=== PATIENT | female | born 1940 | race Caucasian/White ===

== ENCOUNTER 2018-06-10 07:55 | Day surgery (SDC) | payer MEDICARE, OTHER ==
[2018-06-09 11:05] VITALS: BMI 34.9
[~2018-06-10 07:55] MED LIST: LACTATED RINGERS 1,000 ML IV SCH
[2018-06-10 08:29] VITALS: TEMP 99
[2018-06-10] MEDS ORDERED: LIDOCAINE 1% 20 ML VIAL (10MG/ML) FOR IV START INTRADERMA ONE (08:36)
[2018-06-10 08:42] LABS: Glucose,Whole Blood 116 mg/dL (75-99)
[2018-06-10] MEDS ORDERED: LIDOCAINE 1% INJ 10MG/ML (20 ML MDV) ONE (08:53)
[2018-06-10] MEDS ORDERED: PROPOFOL 10 MG/ML 20 ML VIAL IV ONE (08:53)
--- NOTE | 2018-06-10 09:48 | P.PCN ---
Date of Procedure: 06/10/18 Procedure(s) Performed: Brief history: Patient is a pleasant 77-year-old white female, scheduled for an elective upper endoscopy as well as colonoscopy as a part of evaluation of GERD/Harris's esophagus and prior history of colon polyps Procedure performed: Esophagogastroduodenoscopy with biopsy Colonoscopy with snare polypectomy Preoperative diagnosis: GERD/Harris's esophagus History of colon polyps Anesthesia: MAC Procedure: After informed consent was obtained from the patient was brought into the endoscopy unit and IV sedation was administered by anesthesia under continuous monitoring. Initially upper endoscopy was done. The Olympus GF 160 video endoscope was inserted inserted into the mouth and esophagus intubated without any difficulty and was gradually advanced into the stomach and duodenum and carefully examined. The bulb and second part of the duodenum appeared normal. The scope was then withdrawn into the stomach adequately insufflated with air and upon careful examination the antrum and body, appeared normal. There was a moderate large size hiatal hernia noted with diaphragmatic impression at 45 cm from the incisors. GE junction at 38 cm from the incisors. In the hiatal hernia sac there was solid the largest measuring 1 cm in size and multiple biopsies were done from this area. The scope was then withdrawn into the esophagus. The GE junction was located at 38 cm to the incisors. There was long segment of Harris's esophagus extending from 30-38 cm from the incisors and the mucosa appeared smooth with no nodularity. Multiple biopsies were done at every 2 cm into well. Rest of the esophagus appeared normal. Patient tolerated the procedure well. At this time the patient continued to remain sedation. Initial digital rectal examination was normal. Olympus CF 160 video colonoscope was then inserted into the rectum and gradually advanced to the cecum without any difficulty. Careful examination was performed as the scope was gradually being withdrawn. The prep was excellent. The cecum appeared normal. In the ascending colon there was a 2 cm broad-based polyp removed by snare polypectomy. In the hepatic flexure there was a 3-4 cm broad-based polyp that was removed by piecemeal snare polypectomy and complete polypectomy accomplished. In the transverse colon there was a recurrent polyp at the site was dressed polypectomy with tattooing was performed. This polyp measured about 3 cm was broad-based and linear and this was also removed in a piecemeal fashion. The rest of the, ascending colon, transverse colon, descending colon, sigmoid colon and rectum appeared normal. Moderate similar diverticulosis seen. Retroflexion was performed in the rectum and no lesions were noted. Patient tolerated the procedure well. Impression: 1. Upper endoscopy revealed long segment Harris's esophagus, moderate to large size hiatal hernia and gastric polyps 2. Colonoscopy revealed: a) 2 cm broad-based ascending colon polyp status post polypectomy b) 3-4 cm broad-based hepatic flexure polyp status post piecemeal snare polypectomy and complete polypectomy accomplished c) 3 cm linear broad-based polyp in the transverse colon at the site of previous polypectomy status post piecemeal snare polypectomy d) moderate sigmoid diverticular Recommendations: Findings of this examination were discussed with the patient as well as her family. She was advised to follow with the biopsy results. She will be seen in office in a week. Based the biopsy results will plan a repeat colonoscopy in 6 months.
[2018-06-10 10:09] VITALS: BP 124/80; PULSE 76; RESP 20
== END 2018-06-10 10:41 | disposition home or self-care (01) ==
LOC: ORWHC2ENDO 07:55 → EEVIPCON 08:50 → ORWHC2ENDO 10:41
PROVIDERS: ATTEND Internal Medicine Gastroenterology
DX: Z12.11 Encounter for screening for malignant neoplasm of colon (principal); D12.2 Benign neoplasm of ascending colon; D12.3 Benign neoplasm of transverse colon; K22.70 Barrett's esophagus without dysplasia; K44.9 Diaphragmatic hernia without obstruction or gangrene; K57.30 Diverticulosis of large intestine without perforation or abscess without bleeding; Z86.010 Personal history of colon polyps; K31.7 Polyp of stomach and duodenum; Z79.890 Hormone replacement therapy; Z79.899 Other long term (current) drug therapy; G47.33 Obstructive sleep apnea (adult) (pediatric); J44.9 Chronic obstructive pulmonary disease, unspecified; E11.9 Type 2 diabetes mellitus without complications; E66.01 Morbid (severe) obesity due to excess calories; Z68.35 Body mass index [BMI] 35.0-35.9, adult
CPT/HCPCS: 88305; 45385; 43239; 45381; J2001; J2704

== ENCOUNTER → 2018-10-22 | Outpatient (CLI) | payer MEDICARE, OTHER ==
[2018-10-22 20:16] LABS: Anisocytosis Slight; Basophils # (A) 0.1 k/uL (0-0.2); Basophils % (A) 1 %; Eosinophils # (A) 0.1 k/uL (0-0.7); Eosinophils % (A) 2 %; HGB 8.5 gm/dL (11.4-16.0); Hypochromasia Marked; Lymphocytes # (A) 2.2 k/uL (1.0-4.8); Lymphocytes % (A) 32 %; MCH 22.2 pg (25.0-35.0); MCHC 30.2 g/dL (31.0-37.0); MCV 73.6 fL (80.0-100.0); Microcytosis Moderate; Monocytes # (A) 0.5 k/uL (0-1.0); Monocytes % (A) 7 %; Neutrophils # (A) 3.9 k/uL (1.3-7.7); Neutrophils % (A) 55 %; Platelet Count 324 k/uL (150-450); Poikilocytosis Slight; RBC 3.81 m/uL (3.80-5.40); RDW 17.6 % (11.5-15.5); WBC 7.1 k/uL (3.8-10.6)
[2018-10-23 01:57] LABS: Iron Saturation 3.5 (12.00-45.00)
== END | disposition home or self-care (01) ==
LOC: LABWHC1 15:52
PROVIDERS: ATTEND Nurse Practitioner
DX: D50.9 Iron deficiency anemia, unspecified (principal)
CPT/HCPCS: 36415; 82728; 83540; 83550; 85025; 85045

== ENCOUNTER 2018-11-03 14:16 | Inpatient (IN) | payer MEDICARE, OTHER ==
[2018-11-03] MEDS ORDERED: PANTOPRAZOLE 40 MG/10 ML VIAL IVP STA (15:52)
[2018-11-03 16:44] LABS: Albumin 4.7 g/dL (3.5-5.0); Calcium 9.6 mg/dL (8.4-10.2); Potassium 5.3 mmol/L (3.5-5.1); Total Bilirubin 0.3 mg/dL (0.2-1.3); Total Protein 8.6 g/dL (6.3-8.2)
[2018-11-03 16:48] LABS: Anisocytosis Moderate; Basophils % (A) 1 %; Eosinophils # (A) 0.1 k/uL (0-0.7); Eosinophils % (A) 2 %; HCT 35.9 % (34.0-46.0); HGB 10.8 gm/dL (11.4-16.0); Hypochromasia Marked; Lymphocytes # (A) 2.4 k/uL (1.0-4.8); Lymphocytes % (A) 25 %; MCV 76.6 fL (80.0-100.0); Mean Platelet Volume 6.1; Microcytosis Moderate; Monocytes # (A) 0.5 k/uL (0-1.0); Monocytes % (A) 5 %; Neutrophils # (A) 6.1 k/uL (1.3-7.7); Neutrophils % (A) 65 %; Platelet Count 367 k/uL (150-450); RBC 4.69 m/uL (3.80-5.40); RDW 21.6 % (11.5-15.5); WBC 9.4 k/uL (3.8-10.6)
--- NOTE | 2018-11-03 16:50 | ED ---
General Adult HPI - General Chief complaint: GI Bleed Stated complaint: Low HTN/Low Hgb Time Seen by Provider: 11/03/18 15:51 Source: patient, family, RN notes reviewed Mode of arrival: wheelchair Limitations: no limitations - History of Present Illness Initial comments: 78-year-old female with a past medical history of Harris's esophagus, NIDDM, GERD, presents to the emergency department for a chief complaint of rectal bleeding. Patient states that she has had dark tarry stools since Friday which is about 4 days ago. Patient states that she went to [facility] emergency department where she had low hemoglobin and received a tra nsfusion. States she was scheduled for a colonoscopy this Friday with Dr. Archibald because of this. States that Dr. Archibald told her that if she has any additional bleeding she needs to come to [facility] emergency department to move up the colonoscopy. Patient is concerned she may need another transfusion. Patient states she has chronic shortness of breath but no new shortness of breath with this. No other symptoms.Patient has no other complaints at this time including shortness of breath, chest pain, abdominal pain, nausea or vomiting, headache, or visual changes. - Related Data Home Medications Medication Instructions Recorded Confirmed Alendronate Sodium 70 mg PO WEEKLY 03/14/15 06/10/18 Escitalopram [Lexapro] 20 mg PO DAILY 03/14/15 06/09/18 Furosemide 40 mg PO DAILY 03/14/15 06/09/18 Levothyroxine Sodium [Synthroid] 25 mcg PO DAILY 03/14/15 06/09/18 Multivitamins, Thera [Multivitamin] 1 tab PO DAILY 03/14/15 06/10/18 OLANZapine [ZyPREXA] 10 mg PO DAILY 03/14/15 06/09/18 Potassium Chloride [Klor-Con 10] 10 meq PO DAILY 03/14/15 06/09/18 metFORMIN HCL [Metformin HCl ER] 500 mg PO DAILY 03/14/15 06/09/18 Glucosamine/Chondr Christ[place] A Sod [Osteo 1 each PO DAILY 09/19/15 06/09/18 Bi-Flex Caplet] ALPRAZolam [Xanax] 0.25 mg PO DAILY PRN 06/09/18 06/09/18 Acetaminophen Tab [Tylenol Tab] 650 mg PO Q6H PRN 06/09/18 06/09/18 LORazepam [Ativan] 1 mg PO BID 06/09/18 06/09/18 Atorvastatin [Lipitor] 10 mg PO HS 06/10/18 06/10/18 Allergies Allergy/AdvReac Type Severity Reaction Status Date / Time No Known Allergies Allergy Verified 11/03/18 14:36 Review of Systems ROS Statement: Those systems with pertinent positive or pertinent negative responses have been documented in the HPI. ROS Other: All systems not noted in ROS Statement are negative. Past Medical History Past Medical History: Cancer, Diabetes Mellitus, GERD/Reflux, Osteoarthritis (OA), Thyroid Disorder Additional Past Medical History / Comment(s): HX OF BARRETTS ESOPHAGUS, hx migraines, glucose intolerance, thyroid cancer, History of Any Multi-Drug Resistant Organisms: None Reported Past Surgical History: Joint Replacement Additional Past Surgical History / Comment(s): partial thyroidectomy, gallbladder stones removed, deviated septum, left hip replacement, COLONOSCOPY, EGD Past Anesthesia/Blood Transfusion Reactions: Previous Problems w/ Anesthesia Additional Past Anesthesia/Blood Transfusion Reaction / Comment(s): HAS HAD INCIDENTS OF INCONTINENCE and diff coming out of anesthesia Past Psychological History: Bipolar, Schizophrenia Smoking Status: Never smoker Past Alcohol Use History: None Reported Past Drug Use History: None Reported - Past Family History Father Family Medical History: Cancer Mother Family Medical History: Cancer General Exam Limitations: no limitations General appearance: alert, in no apparent distress Head exam: Present: atraumatic, normocephalic, normal inspection Eye exam: Present: normal appearance, PERRL, EOMI. Absent: scleral icterus, conjunctival injection, periorbital swelling ENT exam: Present: normal exam, mucous membranes moist Neck exam: Present: normal inspection, full ROM. Absent: tenderness, meningismus, lymphadenopathy Respiratory exam: Present: normal lung sounds bilaterally. Absent: respiratory distress, wheezes, rales, rhonchi, stridor Cardiovascular Exam: Present: regular rate, normal rhythm, normal heart sounds. Absent: systolic murmur, diastolic murmur, rubs, gallop, clicks GI/Abdominal exam: Present: soft, normal bowel sounds. Absent: distended, tenderness, guarding, rebound, rigid Skin exam: Present: pallor Course Vital Signs 11/03/18 14:30 Temperature 98.4 F Pulse Rate 69 Respiratory 18 Rate Blood Pressure 149/75 O2 Sat by Pulse 99 Oximetry Medical Decision Making - Medical Decision Making 28-year-old female with a possible history of Harris's, NIDDM, GERD presents for melena. This is ongoing for the past 4 days. Patient received a transfusion 2-3 weeks ago at [facility] due to GI bleed. The patient had an outpatient colonoscopy scheduled on Friday with Dr. Archibald but was told that if she has any bleeding that she needs to come right to the emergency department. Patient states she waited at home for a few days but since it would not stop she came to the ER. Other stable. Exam is unremarkable although the patient does have some pallor noted. Hemoglobin however is found to be 10.8 which is improved from 8.52 weeks ago. I have contacted [facility] and am waiting on the results of the hemoglobin that was obtained through their hospital however I have not received these results yet. CMP unremarkable. Minimal hyperkalemia with a potassium of 5.3. At this time given active GI bleed with history of recent transfusion patient will be admitted and GI will be consulted. - Lab Data Result diagrams: 11/03/18 16:00 11/03/18 16:00 Lab Results 11/03/18 11/03/18 11/03/18 Range/Units 16:00 16:00 16:00 WBC 9.4 (3.8-10.6) k/uL RBC 4.69 (3.80-5.40) m/uL Hgb 10.8 L (11.4-16.0) gm/dL Hct 35.9 (34.0-46.0) % MCV 76.6 L (80.0-100.0) fL MCH 23.0 L (25.0-35.0) pg MCHC 30.0 L (31.0-37.0) g/dL RDW 21.6 H (11.5-15.5) % Plt Count 367 (150-450) k/uL Neutrophils % 65 % Lymphocytes % 25 % Monocytes % 5 % Eosinophils % 2 % Basophils % 1 % Neutrophils # 6.1 (1.3-7.7) k/uL Lymphocytes # 2.4 (1.0-4.8) k/uL Monocytes # 0.5 (0-1.0) k/uL Eosinophils # 0.1 (0-0.7) k/uL Basophils # 0.0 (0-0.2) k/uL Hypochromasia Marked Anisocytosis Moderate Microcytosis Moderate Sodium 137 (137-145) mmol/L Potassium 5.3 H (3.5-5.1) mmol/L Chloride 104 (98-107) mmol/L Carbon Dioxide 17 L (22-30) mmol/L Anion Gap 16 mmol/L BUN 18 H (7-17) mg/dL Creatinine 1.07 H (0.52-1.04) mg/dL Est GFR (CKD-EPI)AfAm 58 (>60 ml/min/1.73 sqM) Est GFR (CKD-EPI)NonAf 50 (>60 ml/min/1.73 sqM) Glucose 90 (74-99) mg/dL Calcium 9.6 (8.4-10.2) mg/dL Total Bilirubin 0.3 (0.2-1.3) mg/dL AST 25 (14-36) U/L ALT 11 (9-52) U/L Alkaline Phosphatase 92 (38-126) U/L Total Protein 8.6 H (6.3-8.2) g/dL Albumin 4.7 (3.5-5.0) g/dL Blood Type A Positive Blood Type Recheck A Pos Bld Type Recheck Status No Antibody Screen NEGATIVE Spec Expiration Date 11/06/2018 - 2299 Disposition Clinical Impression: Melena, Anemia Disposition: ADMITTED IP TO THIS HOSP Condition: Fair Is patient prescribed a controlled substance at d/c from ED?: No Referrals: Sharan Nick MD [Primary Care Provider] - 1-2 days Time of Disposition: 17:19
[2018-11-03] MEDS ORDERED: SODIUM CHLORIDE 0.9% 500 ML 500 ML IV STA (16:51)
[2018-11-03] MEDS ORDERED: NALOXONE 0.4 MG/ML 1 ML VIAL IV PRN (17:19)
[2018-11-03] MEDS: SODIUM CHLORIDE 0.9% 1,000 ML IV SCH (19:53)
[2018-11-03] MEDS ORDERED: FUROSEMIDE 40 MG TAB PO PRN (20:11)
[2018-11-03] MEDS ORDERED: NON FORMULARY DRUG (Omeprazole [Omeprazole] 20 MG) PO SCH (21:00)
[2018-11-03] MEDS: OLANZapine 10 MG TAB PO SCH (21:08)
[2018-11-03] MEDS: metFORMIN 500 MG TAB PO SCH (21:08)
[2018-11-03] MEDS: ALPRAZolam 0.25 MG TAB PO SCH (21:08)
[2018-11-03] MEDS: ACETAMINOPHEN TAB 325 MG TAB PO SCH (21:09)
[2018-11-03] MEDS: IPRATROPIUM BROMIDE 0.06% NASAL SPRAY (15 ML) EA NOSTRIL SCH (21:09)
[2018-11-03 22:42] LABS: Anisocytosis Moderate; Basophils % (A) 1 %; Eosinophils # (A) 0.2 k/uL (0-0.7); Eosinophils % (A) 2 %; HCT 29.1 % (34.0-46.0); Hypochromasia Marked; Lymphocytes # (A) 1.5 k/uL (1.0-4.8); Lymphocytes % (A) 19 %; MCH 23.5 pg (25.0-35.0); MCHC 29.9 g/dL (31.0-37.0); MCV 78.8 fL (80.0-100.0); Mean Platelet Volume 6.6; Microcytosis Slight; Monocytes # (A) 0.4 k/uL (0-1.0); Monocytes % (A) 5 %; Neutrophils # (A) 5.5 k/uL (1.3-7.7); Neutrophils % (A) 71 %; Platelet Count 309 k/uL (150-450); RBC 3.69 m/uL (3.80-5.40); RDW 20.8 % (11.5-15.5); WBC 7.8 k/uL (3.8-10.6)
[2018-11-03 22:46] LABS: HGB 8.7 gm/dL (11.4-16.0)
[2018-11-03 22:47] LABS: INR 0.9 (<1.2); Partial Thromboplastin Time 24.4 sec (22.0-30.0); Prothrombin Time 9.8 sec (9.0-12.0)
[2018-11-04] MEDS: LEVOTHYROXINE 50 MCG TAB PO SCH (05:21)
[2018-11-04 07:23] LABS: Anisocytosis Moderate; Basophils % (A) 0 %; Eosinophils # (A) 0.1 k/uL (0-0.7); Eosinophils % (A) 2 %; HCT 30.5 % (34.0-46.0); HGB 9.2 gm/dL (11.4-16.0); Hypochromasia Marked; Lymphocytes # (A) 1.4 k/uL (1.0-4.8); Lymphocytes % (A) 17 %; MCH 23.7 pg (25.0-35.0); MCHC 30.3 g/dL (31.0-37.0); MCV 78.2 fL (80.0-100.0); Mean Platelet Volume 6.7; Microcytosis Slight; Monocytes # (A) 0.5 k/uL (0-1.0); Monocytes % (A) 6 %; Neutrophils # (A) 6.2 k/uL (1.3-7.7); Neutrophils % (A) 74 %; Platelet Count 335 k/uL (150-450); RDW 21.3 % (11.5-15.5); WBC 8.4 k/uL (3.8-10.6)
[2018-11-04] MEDS ORDERED: GLUCOSAMINE PO SCH (09:00)
[2018-11-04] MEDS ORDERED: PANTOPRAZOLE 40 MG/10 ML VIAL IV SCH (09:00)
[2018-11-04] MEDS ORDERED: CHONDR SU A SOD PO SCH (09:00)
[2018-11-04] MEDS ORDERED: DOCUSATE 100 MG CAP PO SCH (09:00)
[2018-11-04] MEDS: ALPRAZolam 0.25 MG TAB PO SCH ×2 (10:19→21:03)
[2018-11-04] MEDS: ESCITALOPRAM 20 MG TAB PO SCH (10:20)
[2018-11-04] MEDS: CYANOCOBALAMIN 500 MCG TAB PO SCH (10:20)
[2018-11-04] MEDS: metFORMIN 500 MG TAB PO SCH (10:20)
[2018-11-04] MEDS: ACETAMINOPHEN TAB 325 MG TAB PO SCH ×3 (10:21→21:02)
[2018-11-04] MEDS: SODIUM CHLORIDE 0.9% 1,000 ML IV SCH (12:24)
[2018-11-04] MEDS: IPRATROPIUM BROMIDE 0.06% NASAL SPRAY (15 ML) EA NOSTRIL SCH ×2 (12:25→21:03)
[2018-11-04 13:02] LABS: Anisocytosis Moderate; Basophils # (A) 0.1 k/uL (0-0.2); Basophils % (A) 1 %; Eosinophils # (A) 0.1 k/uL (0-0.7); Eosinophils % (A) 1 %; HCT 32.4 % (34.0-46.0); HGB 10.1 gm/dL (11.4-16.0); Hypochromasia Marked; Lymphocytes # (A) 1.5 k/uL (1.0-4.8); Lymphocytes % (A) 15 %; MCH 23.6 pg (25.0-35.0); MCHC 31.2 g/dL (31.0-37.0); MCV 75.6 fL (80.0-100.0); Mean Platelet Volume 7.1; Microcytosis Moderate; Monocytes # (A) 0.6 k/uL (0-1.0); Monocytes % (A) 6 %; Neutrophils # (A) 7.6 k/uL (1.3-7.7); Neutrophils % (A) 76 %; Platelet Count 323 k/uL (150-450); RBC 4.29 m/uL (3.80-5.40); RDW 22.2 % (11.5-15.5)
--- NOTE | 2018-11-04 20:43 | P.HPIM ---
History of Present Illness H&P Date: 11/04/18 Chief Complaint: Black stools History of presenting complaint: This is a very pleasant 78-year-old patient of Dr. Nick from visiting physician. Chronic stable medical conditions include diabetes, GERD, Harris's esophagus, primary osteoarthritis, hypothyroid. Patient also had thyroid cancer in the past. EGD and colonoscopy in June of this year by Dr. Ritesh Archibald revealed mo derate to large hiatal hernia and a long segment of Harris's esophagus, colon polyps, and moderate sigmoid diverticulosis. Patient about 2 weeks ago was edematous hospital feeling weak and tired. Hemoglobin was found to be around 6. Given a unit of blood. Patient has been feeling weak tired rundown. Visiting nurse came out to her found her to have a low blood pressure. Patient also notices for last 2 or 3 weeks have been having dark stools. Has decided to come in. No chest pain no palpitation. Review of systems: GEN.: Weak and tired EYES: None HEENT: None NECK: None RESPIRATORY: None CARDIOVASCULAR: None GASTROINTESTINAL: As above no abdominal pain GENITOURINARY: None MUSCULOSKELETAL: Pain in joints LYMPHATICS: None HEMATOLOGICAL: None PSYCHIATRY: But anxious NEUROLOGICAL: None Social history: Lives with her daughter. No smoking. No alcohol. Family history: Cancer Physical examination: VITAL SIGNS: 98.4, 69, 18, 149/75, 99% room air GENERAL: BMI 33.5, sitting up at the edge of the bed. EYES: Pupils equal. Conjunctiva palel. HEENT: External appearance of nose and ears normal, oral cavity grossly normal. NECK: JVD not raised; masses not palpable. HEART: First and second heart sounds are normal; no edema. LUNGS: Respiratory rate normal; clear to auscultation. ABDOMEN: Soft, nontender, liver spleen not palpable, no masses palpable. PSYCH: Alert and oriented x3; mood and affect normal. NEUROLOGICAL: Cranial nerves grossly intact; no facial asymmetry, power and sensation grossly intact. LYMPHATICS: No lymph nodes palpable in the axilla and neck MUSCULAR skeletal: Evidence of OA especially in the hands INVESTIGATIONS, reviewed in the clinical context: White count 9.4 hemoglobin 10.8 repeat 8.7 potassium 5.3 bun 18 creatinine 1.07 Assessment: -Hypotension from blood loss causing weakness and tiredness -Acute GI bleed with patient having black stools. -Chronic Harris's esophagus -Moderate to large hiatal hernia -Sigmoid diverticulosis -Diabetes mellitus type 2 -GERD -Primary osteoarthritis -Hypothyroid -Anxiety depression otherwise specified -Obesity BMI 33.5 Plan: Patient admitted to the hospital. GI was consulted due to endoscopy. Patient may require a small bowel bowel capsule study. Oral hypoglycemics will be held. Accu-Cheks will be followed. Other medications to be resumed. Care was discussed at length with the patient. Past Medical History Past Medical History: Cancer, Diabetes Mellitus, GERD/Reflux, Osteoarthritis (OA), Thyroid Disorder Additional Past Medical History / Comment(s): HX OF BARRETTS ESOPHAGUS, hx migraines, glucose intolerance, thyroid cancer, History of Any Multi-Drug Resistant Organisms: None Reported Past Surgical History: Joint Replacement Additional Past Surgical History / Comment(s): partial thyroidectomy, gallbladder stones removed, deviated septum, left hip replacement, COLONOSCOPY, EGD Past Anesthesia/Blood Transfusion Reactions: Previous Problems w/ Anesthesia Additional Past Anesthesia/Blood Transfusion Reaction / Comment(s): HAS HAD INCIDENTS OF INCONTINENCE and diff coming out of anesthesia Past Psychological History: Bipolar, Schizophrenia Additional Psychological History / Comment(s): delusional disorder, psychotic disorder Smoking Status: Never smoker Past Alcohol Use History: None Reported Past Drug Use History: None Reported - Past Family History Father Family Medical History: Cancer Mother Family Medical History: Cancer Medications and Allergies Home Medications Medication Instructions Recorded Confirmed Type Alendronate Sodium 70 mg PO [place] 03/14/15 11/03/18 History Escitalopram [Lexapro] 20 mg PO DAILY 03/14/15 11/03/18 History Furosemide 40 mg PO DAILY PRN 03/14/15 11/03/18 History OLANZapine [ZyPREXA] 10 mg PO HS 03/14/15 11/03/18 History metFORMIN HCL [Metformin HCl ER] 500 mg PO BID 03/14/15 11/03/18 History Glucosamine/Chondr [place] A Sod [Osteo 1 tab PO DAILY 09/19/15 11/03/18 History Bi-Flex Caplet] ALPRAZolam [Xanax] 0.25 mg PO BID 06/09/18 11/03/18 History Acetaminophen Tab [Tylenol Tab] 650 mg PO BID 06/09/18 11/03/18 History Acetaminophen Tab [Tylenol Tab] 325 mg PO DAILY@1200 11/03/18 11/03/18 History Cyanocobalamin (Vitamin B-12) 1,000 mcg PO DAILY 11/03/18 11/03/18 History [Vitamin B-12] Docusate [Colace] 100 mg PO DAILY 11/03/18 11/03/18 History Ipratropium [place] 0.06%Nasal 2 spray EA NOSTRIL BID 11/03/18 11/03/18 History [Atrovent Nasal 0.06%] Levothyroxine Sodium [Synthroid] 50 mcg PO DAILY 11/03/18 11/03/18 History Omeprazole 20 mg PO BID 11/03/18 11/03/18 History Allergies Allergy/AdvReac Type Severity Reaction Status Date / Time No Known Allergies Allergy Verified 11/03/18 17:35 Physical Exam Vitals: Vital Signs Temp Pulse Pulse Resp BP BP Pulse Ox 11/04/18 05:37 97.2 F L 113 H 18 137/67 92 L 11/04/18 00:00 16 11/03/18 20:00 96.1 F L 75 16 160/71 99 11/03/18 18:28 98 F 72 189/91 11/03/18 17:46 67 16 174/87 100 11/03/18 14:30 98.4 F 69 18 149/75 99 Intake and Output 11/03/18 11/04/18 11/04/18 22:59 06:59 14:59 Intake Total 200 Balance 200 Intake: Intake, IV Titration 200 Amount Sodium Chloride 0.9% 1, 200 000 ml @ 50 mls/hr IV . Q20H [facility] Rx#:[id number] Other: Voiding Method Toilet Diaper # Voids 1 3 # Bowel Movements 1 Results CBC & Chem 7: 11/04/18 12:36 11/03/18 16:00 Labs: Abnormal Lab Results - Last 24 Hours (Table) 11/03/18 11/03/18 11/03/18 Range/Units 16:00 16:00 22:23 RBC 3.69 L (3.80-5.40) m/uL Hgb 10.8 L 8.7 L D (11.4-16.0) gm/dL Hct 29.1 L (34.0-46.0) % MCV 76.6 L 78.8 L (80.0-100.0) fL MCH 23.0 L 23.5 L (25.0-35.0) pg MCHC 30.0 L 29.9 L (31.0-37.0) g/dL RDW 21.6 H 20.8 H (11.5-15.5) % Potassium 5.3 H (3.5-5.1) mmol/L Carbon Dioxide 17 L (22-30) mmol/L BUN 18 H (7-17) mg/dL Creatinine 1.07 H (0.52-1.04) mg/dL Total Protein 8.6 H (6.3-8.2) g/dL 11/04/18 Range/Units 06:23 RBC (3.80-5.40) m/uL Hgb 9.2 L (11.4-16.0) gm/dL Hct 30.5 L (34.0-46.0) % MCV 78.2 L (80.0-100.0) fL MCH 23.7 L (25.0-35.0) pg MCHC 30.3 L (31.0-37.0) g/dL RDW 21.3 H (11.5-15.5) % Potassium (3.5-5.1) mmol/L Carbon Dioxide (22-30) mmol/L BUN (7-17) mg/dL Creatinine (0.52-1.04) mg/dL Total Protein (6.3-8.2) g/dL Thrombosis Risk Factor Assmnt - Choose All That Apply Each Risk Factor Represents 3 Points: Age 75 years or older Thrombosis Risk Factor Assessment Total Risk Factor Score: 3 Thrombosis Risk Factor Assessment Level: Moderate Risk
[2018-11-04 21:00] LABS: Glucose,Whole Blood 101 mg/dL (75-99)
[2018-11-04] MEDS: INSULIN ASPART (NovoLOG) 100 UNIT/ML VIAL SQ SCH (21:00)
[2018-11-04] MEDS: OLANZapine 10 MG TAB PO SCH (21:03)
--- NOTE | 2018-11-04 21:11 | P.CONS ---
History of Present Illness - Reason for Consult Consult date: 11/04/18 GI bleed Requesting physician: He Jimenez - Chief Complaint Black stool, low blood pressure - History of Present Illness 78-year-old female with medical history significant for hypothyroidism, osteoarthritis, azp-efsdhyz-[id number] dependent diabetes mellitus, GERD, Bar rett's esophagus and diverticulosis of presented to the hospital due to complaints of anemia and low blood pressure. The patient reports approximately 2 weeks ago she was found to be anemic and given 1 unit of packed red blood cells. She reports that she is been having dark stools intermittently since that time and then more regularly over the past 4 days and was noted to have low blood pressure by her visiting nurse. She has a significant history of endoscopic findings including EGD in June 2018 with findings of a hiatal hernia and long segment Elias's esophagus, and colonoscopy at that time significant for moderate sigmoid diverticulosis as well as removal of large colonic polyps. The patient was scheduled for repeat colonoscopy this Friday who presented to the hospital due to concerns over ongoing GI blood loss. She denies any use of iron supplements or Pepto-Bismol. No gross bleeding seen. Hemoglobin was 10.8 on presentation and subsequently 10.1. Review of Systems REVIEW OF SYSTEMS: CONSTITUTIONAL: Denies any fevers, chills, weight change or fatigue. CARDIOVASCULAR: Denies any chest pain, palpitations high or low blood pressures RESPIRATORY: Denies any shortness of breath, hemoptysis or cough. GENITOURINARY: No dysuria or hematuria. MUSCULOSKELETAL: No focal weakness reported. SKIN: Denies any new rashes or lesions, jaundice or pallor. PSYCHIATRIC: Denies any depression or anxiety. NEUROLOGY: Denies headache, denies any new focal deficits. EARS/NOSE/THROAT: No recent hearing change, congestion, nasal discharge or sore throat. EYES: No pain in eyes, discharge or change in vision. GASTROINTESTINAL: As per HPI. Past Medical History Past Medical History: Cancer, Diabetes Mellitus, GERD/Reflux, Osteoarthritis (OA), Thyroid Disorder Additional Past Medical History / Comment(s): HX OF BARRETTS ESOPHAGUS, hx migraines, glucose intolerance, thyroid cancer, History of Any Multi-Drug Resistant Organisms: None Reported Past Surgical History: Joint Replacement Additional Past Surgical History / Comment(s): partial thyroidectomy, gallbladder stones removed, deviated septum, left hip replacement, COLONOSCOPY, EGD Past Anesthesia/Blood Transfusion Reactions: Previous Problems w/ Anesthesia Additional Past Anesthesia/Blood Transfusion Reaction / Comm: HAS HAD INCIDENTS OF INCONTINENCE and diff coming out of anesthesia Past Psychological History: Bipolar, Schizophrenia Additional Psychological History / Comment(s): delusional disorder, psychotic disorder Smoking Status: Never smoker Past Alcohol Use History: None Reported Past Drug Use History: None Reported - Past Family History Father Family Medical History: Cancer Mother Family Medical History: Cancer Medications and Allergies Home Medications Medication Instructions Recorded Confirmed Type Alendronate Sodium 70 mg PO [place] 03/14/15 11/03/18 History Escitalopram [Lexapro] 20 mg PO DAILY 03/14/15 11/03/18 History Furosemide 40 mg PO DAILY PRN 03/14/15 11/03/18 History OLANZapine [ZyPREXA] 10 mg PO HS 03/14/15 11/03/18 History metFORMIN HCL [Metformin HCl ER] 500 mg PO BID 03/14/15 11/03/18 History Glucosamine/Chondr [place] A Sod [Osteo 1 tab PO DAILY 09/19/15 11/03/18 History Bi-Flex Caplet] ALPRAZolam [Xanax] 0.25 mg PO BID 06/09/18 11/03/18 History Acetaminophen Tab [Tylenol Tab] 650 mg PO BID 06/09/18 11/03/18 History Acetaminophen Tab [Tylenol Tab] 325 mg PO DAILY@1200 11/03/18 11/03/18 History Cyanocobalamin (Vitamin B-12) 1,000 mcg PO DAILY 11/03/18 11/03/18 History [Vitamin B-12] Docusate [Colace] 100 mg PO DAILY 11/03/18 11/03/18 History Ipratropium [place] 0.06%Nasal 2 spray EA NOSTRIL BID 11/03/18 11/03/18 History [Atrovent Nasal 0.06%] Levothyroxine Sodium [Synthroid] 50 mcg PO DAILY 11/03/18 11/03/18 History Omeprazole 20 mg PO BID 11/03/18 11/03/18 History Allergies Allergy/AdvReac Type Severity Reaction Status Date / Time No Known Allergies Allergy Verified 11/03/18 17:35 Physical Exam Vitals: Vital Signs Temp Pulse Pulse Resp BP BP Pulse Ox 11/04/18 11:34 98.8 F 79 15 142/70 100 11/04/18 08:00 79 16 11/04/18 05:37 97.2 F L 113 H 18 137/67 92 L 11/04/18 00:00 16 11/03/18 20:00 96.1 F L 75 16 160/71 99 11/03/18 18:28 98 F 72 189/91 11/03/18 17:46 67 16 174/87 100 Intake and Output 11/04/18 11/04/18 11/04/18 06:59 14:59 22:59 Intake Total 620 Balance 620 Intake: Oral 620 Other: Voiding Method Toilet Toilet Diaper Diaper # Voids 3 On physical examination, patient appears comfortable in no apparent distress. HEAD: Normocephalic, atraumatic. EYES: No scleral icterus. No conjunctival injection. MOUTH: No lesions, tongue midline. NECK: Trachea midline, no gross abnormalities. CHEST: Decreased air entry bilaterally with no wheezing appreciated. HEART: S1-S2 appreciated with no murmurs noted. ABDOMEN: Soft, obese. Bowel sounds are positive. No organomegaly. No guarding or rigidity. EXTREMITIES: No pedal edema. SKIN: No rashes, no jaundice. NEUROLOGIC: Alert and oriented. No focal deficits. Results CBC & Chem 7: 11/04/18 12:36 11/03/18 16:00 Labs: Abnormal Lab Results - Last 24 Hours (Table) 11/03/18 11/03/18 11/03/18 Range/Units 16:00 16:00 22:23 RBC 3.69 L (3.80-5.40) m/uL Hgb 10.8 L 8.7 L D (11.4-16.0) gm/dL Hct 29.1 L (34.0-46.0) % MCV 76.6 L 78.8 L (80.0-100.0) fL MCH 23.0 L 23.5 L (25.0-35.0) pg MCHC 30.0 L 29.9 L (31.0-37.0) g/dL RDW 21.6 H 20.8 H (11.5-15.5) % Potassium 5.3 H (3.5-5.1) mmol/L Carbon Dioxide 17 L (22-30) mmol/L BUN 18 H (7-17) mg/dL Creatinine 1.07 H (0.52-1.04) mg/dL Total Protein 8.6 H (6.3-8.2) g/dL 11/04/18 11/04/18 Range/Units 06:23 12:36 RBC (3.80-5.40) m/uL Hgb 9.2 L 10.1 L (11.4-16.0) gm/dL Hct 30.5 L 32.4 L (34.0-46.0) % MCV 78.2 L 75.6 L (80.0-100.0) fL MCH 23.7 L 23.6 L (25.0-35.0) pg MCHC 30.3 L (31.0-37.0) g/dL RDW 21.3 H 22.2 H (11.5-15.5) % Potassium (3.5-5.1) mmol/L Carbon Dioxide (22-30) mmol/L BUN (7-17) mg/dL Creatinine (0.52-1.04) mg/dL Total Protein (6.3-8.2) g/dL Assessment and Plan (1) Microcytic hypochromic anemia Narrative/Plan: 70-year-old female with multiple medical comorbidities including sigmoid diverticulosis, hiatal hernia, Elias's esophagus, previous polypectomy of large colonic polyps with recent fall in hemoglobin and associated microcytic anemia suspicious for GI bleed with the patient reporting 4 days of melena prior to presentation. Patient was scheduled for repeat endoscopy with EGD and colonoscopy on Friday. Current Visit: Yes Status: Acute Code(s): D50.9 - IRON DEFICIENCY ANEMIA, UN SPECIFIED SNOMED Code(s): 37272235 (2) Melena Current Visit: Yes Status: Acute Code(s): K92.1 - MELENA SNOMED Code(s): 0022538 (3) Elias esophagus Current Visit: Yes Status: Acute Code(s): K22.70 - ELIAS'S ESOPHAGUS WITHOUT DYSPLASIA SNOMED Code(s): 247612249 (4) Sigmoid diverticulosis Current Visit: Yes Status: Acute Code(s): K57.30 - DVRTCLOS OF LG INT W/O PERFORATION OR ABSCESS W/O BLEEDING SNOMED Code(s): 261097970 Plan: Supportive care Clear liquid diet Continue to monitor hemoglobin and transfuse as needed Protonix twice a day Patient will be prepped tomorrow for EGD and colonoscopy on Friday with possible small bowel capsule endoscopy if no source of bleeding is noted Thank you for allowing us to participate in the care of the patient we will continue to follow
[2018-11-05] MEDS: LEVOTHYROXINE 50 MCG TAB PO SCH (05:22)
[2018-11-05 07:07] LABS: Glucose,Whole Blood 123 mg/dL (75-99)
[2018-11-05] MEDS ORDERED: PANTOPRAZOLE 40 MG TABLET PO SCH (07:30)
[2018-11-05] MEDS: INSULIN ASPART (NovoLOG) 100 UNIT/ML VIAL SQ SCH ×4 (08:11→22:26)
[2018-11-05] MEDS: ALPRAZolam 0.25 MG TAB PO SCH ×2 (08:13→20:19)
[2018-11-05] MEDS: ESCITALOPRAM 20 MG TAB PO SCH (08:13)
[2018-11-05] MEDS: PANTOPRAZOLE 40 MG TABLET PO SCH ×2 (08:13→17:05)
[2018-11-05] MEDS: CYANOCOBALAMIN 500 MCG TAB PO SCH (08:13)
[2018-11-05] MEDS: ACETAMINOPHEN TAB 325 MG TAB PO SCH ×3 (08:14→20:19)
[2018-11-05] MEDS: IPRATROPIUM BROMIDE 0.06% NASAL SPRAY (15 ML) EA NOSTRIL SCH ×2 (08:15→20:20)
[2018-11-05] MEDS: SODIUM CHLORIDE 0.9% 1,000 ML IV SCH (08:17)
[2018-11-05 11:49] LABS: Glucose,Whole Blood 92 mg/dL (75-99)
[2018-11-05] MEDS ORDERED: BISACODYL 5 MG TABLET.DR PO STA (16:18)
[2018-11-05 17:10] LABS: Glucose,Whole Blood 80 mg/dL (75-99)
[2018-11-05] MEDS ORDERED: PEG 3350-NA SULF,BICARB,CL/KCL 4,000 ML BOTTLE PO ONE (17:30)
--- NOTE | 2018-11-05 19:30 | P.PN ---
Progress Note - Text Progress Note Date: 11/05/18 Chief Complaint: Black stools Interval history: This is a very pleasant 78-year-old patient of Dr. Nick from visiting physician. Chronic stable medical conditions include diabetes, GERD, Harris's esophagus, primary osteoarthritis, hypothyroid. Patient also had thyroid cancer in the past. EGD and colonoscopy in June of this year by Dr. Ritesh Archibald revealed moderate to large hiatal hernia and a long segment of Harris's esophagus, colon polyps, and moderate sigmoid diverticulosis. Patient about 2 weeks ago was edematous hospital feeling weak and tired. Hemoglobin was found to be around 6. Given a unit of blood. Patient has been feeling weak tired rundown. Visiting nurse came out to her found her to have a low blood pressure. Patient also notices for last 2 or 3 weeks have been having dark stools. Has decided to come in. No chest pain no palpitation. Today-sitting up. Tired. Did have another dark stools. Awaiting endoscopy Review of systems: Was done for constitutional, cardiovascular, GI, pulmonary. relevant finding as above Active Medications Acetaminophen (Tylenol Tab) 325 mg PO DAILY@1200 [facility] Last Admin: 11/05/18 12:40 Dose: 325 mg Documented by: Acetaminophen (Tylenol Tab) 650 mg PO BID [facility] Last Admin: 11/05/18 08:14 Dose: 650 mg Documented by: Alprazolam (Xanax) 0.25 mg PO BID [facility] Last Admin: 11/05/18 08:13 Dose: 0.25 mg Documented by: Cyanocobalamin (Vitamin B-12) 1,000 mcg PO DAILY [facility] Last Admin: 11/05/18 08:13 Dose: 1,000 mcg Documented by: Escitalopram Oxalate (Lexapro) 20 mg PO DAILY [facility] Last Admin: 11/05/18 08:13 Dose: 20 mg Documented by: Furosemide (Lasix) 40 mg PO DAILY PRN PRN Reason: Edema Sodium Chloride (Saline 0.9%) 1,000 mls @ 50 mls/hr IV .Q20H [facility] Last Admin: 11/05/18 08:17 Dose: Not Given Documented by: Insulin Aspart (Novolog) 0 unit SQ ACHS [facility]; Protocol Last Admin: 11/05/18 17:09 Dose: Not Given Documented by: Ipratropium [place] (Atrovent Nasal) 2 spray EA NOSTRIL BID [facility] Last Admin: 11/05/18 08:15 Dose: 2 spray Documented by: Levothyroxine Sodium (Synthroid) 50 mcg PO DAILY@0630 [facility] Last Admin: 11/05/18 05:22 Dose: 50 mcg Documented by: Naloxone HCl (Narcan) 0.2 mg IV Q2M PRN PRN Reason: Opioid Reversal Olanzapine (Zyprexa) 10 mg PO HS [facility] Last Admin: 11/04/18 21:03 Dose: 10 mg Documented by: Pantoprazole Sodium (Protonix) 40 mg PO AC-BID [facility] Last Admin: 11/05/18 17:05 Dose: 40 mg Documented by: Physical examination: VITAL SIGNS: 96.9, 69, 17, 122/61, 97% room air GENERAL: BMI 33.5, sitting up, comfortable EYES: Pupils equal. Conjunctiva pale. HEENT: External appearance of nose and ears normal, oral cavity grossly normal. NECK: JVD not raised; masses not palpable. HEART: First and second heart sounds are normal; no edema. LUNGS: Respiratory rate normal; clear to auscultation. ABDOMEN: Soft, nontender, liver spleen not palpable, no masses palpable. PSYCH: Alert and oriented x3; mood and affect normal. MUSCULAR skeletal: Evidence of OA especially in the hands INVESTIGATIONS, reviewed in the clinical context: Hemoglobin 10.1 Admission labs White count 9.4 hemoglobin 10.8 repeat 8.7 potassium 5.3 bun 18 creatinine 1.07 Assessment: -Hypotension from blood loss causing weakness and tiredness -Acute blood loss and anemia -Acute GI bleed with patient having black stools. -Chronic Harris's esophagus -Moderate to large hiatal hernia -Sigmoid diverticulosis -Diabetes mellitus type 2 -GERD -Primary osteoarthritis -Hypothyroid -Anxiety depression otherwise specified -Obesity BMI 33.5 Plan: Care was discussed with the patient.. Plan is for patient to have EGD colonoscopy tomorrow on Friday. If negative possible small bowel capsule endoscopy.
[2018-11-05] MEDS: OLANZapine 10 MG TAB PO SCH (20:20)
[2018-11-05 20:25] LABS: Glucose,Whole Blood 137 mg/dL (75-99)
[2018-11-06] MEDS: SODIUM CHLORIDE 0.9% 1,000 ML IV SCH (04:49)
[2018-11-06] MEDS: LEVOTHYROXINE 50 MCG TAB PO SCH (05:08)
[2018-11-06 06:57] LABS: Glucose,Whole Blood 88 mg/dL (75-99)
[2018-11-06] MEDS: INSULIN ASPART (NovoLOG) 100 UNIT/ML VIAL SQ SCH ×2 (07:07→09:20)
[2018-11-06] MEDS: ACETAMINOPHEN TAB 325 MG TAB PO SCH ×3 (08:47→12:00)
[2018-11-06] MEDS: PANTOPRAZOLE 40 MG TABLET PO SCH ×2 (08:47→11:56)
[2018-11-06] MEDS: ALPRAZolam 0.25 MG TAB PO SCH ×2 (08:50→11:56)
[2018-11-06] MEDS: CYANOCOBALAMIN 500 MCG TAB PO SCH ×2 (08:50→11:56)
[2018-11-06] MEDS: IPRATROPIUM BROMIDE 0.06% NASAL SPRAY (15 ML) EA NOSTRIL SCH (08:51)
[2018-11-06] MEDS: ESCITALOPRAM 20 MG TAB PO SCH ×2 (09:14→11:57)
--- NOTE | 2018-11-06 09:17 | P.PN ---
Subjective Progress Note Date: 11/05/18 Principal diagnosis: Melena, GI bleed, Elias's esophagus Patient lying in bed, she is tolerated his liquid diet. No abdominal pain. No further signs or symptoms of GI bleeding. Objective - Vital Signs Vital signs: Vital Signs Temp 96.9 F L 11/05/18 12:17 Pulse 69 11/05/18 15:16 Resp 17 11/05/18 15:16 BP 122/61 11/05/18 12:17 Pulse Ox 97 11/05/18 12:17 Intake & Output 11/04/18 11/05/18 11/05/18 18:59 06:59 18:59 Intake Total 2140 1030 1720 Balance 2140 1030 1720 Intake: Intake, IV Titration 180 550 160 Amount Sodium Chloride 0.9% 1, 180 550 160 000 ml @ 50 mls/hr IV . Q20H [facility] Rx#:[id number] Oral [phone] Other: Voiding Method Toilet Toilet Toilet Diaper Diaper Diaper # Voids 3 3 4 - Exam On physical examination, patient appears comfortable in no apparent distress. HEAD: Normocephalic, atraumatic. EYES: No scleral icterus. No conjunctival injection. MOUTH: No lesions, tongue midline. NECK: Trachea midline, no gross abnormalities. CHEST: Clear to auscultation with no wheezing or rhonchi appreciated. HEART: Regular rate and rhythm. ABDOMEN: Soft, obese. Bowel sounds are positive. No organomegaly. No guarding or rigidity. EXTREMITIES: No pedal edema. SKIN: No rashes, no jaundice. NEUROLOGIC: Alert and oriented x3. No focal deficits. - Labs CBC & Chem 7: 11/04/18 12:36 11/03/18 16:00 Labs: Abnormal Lab Results - Last 24 Hours (Table) 11/04/18 11/05/18 Range/Units 20:59 07:05 POC Glucose (mg/dL) 101 H 123 H (75-99) mg/dL Assessment and Plan (1) Microcytic hypochromic anemia Narrative/Plan: 70-year-old female with multiple medical comorbidities including sigmoid diverticulosis, hiatal hernia, Elias's esophagus, previous polypectomy of large colonic polyps with recent fall in hemoglobin and associated microcytic anemia suspicious for GI bleed with the patient reporting 4 days of melena prior to presentation. Patient was scheduled for repeat endoscopy with EGD and colonoscopy on Friday. Current Visit: Yes Status: Acute Code(s): D50.9 - IRON DEFICIENCY ANEMIA, UNSPECIFIED SNOMED Code(s): 18172479 (2) Melena Current Visit: Yes Status: Acute Code(s): K92.1 - MELENA SNOMED Code(s): 5172496 (3) Elias esophagus Current Visit: Yes Status: Acute Code(s): K22.70 - ELIAS'S ESOPHAGUS WITHOUT DYSPLASIA SNOMED Code(s): 341405212 (4) Sigmoid diverticulosis Current Visit: Yes Status: Acute Code(s): K57.30 - DVRTCLOS OF LG INT W/O PERFORATION OR ABSCESS W/O BLEEDING SNOMED Code(s): 858948758 Plan: Supportive care Clear liquid diet Continue to monitor hemoglobin and transfuse as needed Protonix twice a day Patient will be prepped tomorrow for EGD and colonoscopy on Friday with possible small bowel capsule endoscopy if no source of bleeding is noted Thank you for allowing us to participate in the care of the patient we will continue to follow
[2018-11-06] MEDS ORDERED: IV FLUID CONTINUATION 1,000 ML IV ONE (10:22)
[2018-11-06] MEDS ORDERED: PROPOFOL 10 MG/ML 20 ML VIAL IV ONE (10:27)
[2018-11-06] MEDS ORDERED: LIDOCAINE 1% INJ 10MG/ML (20 ML MDV) ONE (10:27)
[2018-11-06] MEDS ORDERED: SODIUM CHLORIDE 0.9% 500 ML IV ONE (10:50)
--- NOTE | 2018-11-06 10:51 | P.PCN ---
Date of Procedure: 11/06/18 Procedure(s) Performed: Brief history: Patient is a pleasant 78-year-old white female, scheduled for an elective upper endoscopy as well as colonoscopy as a part of evaluation of severe symptomatic anemia and hemoglobin of 6.5 g/dL approximately 3 weeks ago requiring 1 unit of blood transfusion. Patient was admitted hospital yesterday because of hypotension but she was always scheduled for an elective EGD and colonoscopy today. She had a colonoscopy done in the neoplasia which revealed 3 large polyps in the colon which were removed in a piecemeal fashion and biopsy showed adenoma. She was recommended to have a repeat colonoscopy in 3 months. Procedure performed: Esophagogastroduodenoscopy with biopsy Colonoscopy with biopsy Preoperative diagnosis: Severe symptomatic anemia GERD/Harris's esophagus History of colon polyps Anesthesia: MAC Procedure: After informed consent was obtained from the patient was brought into the endoscopy unit and IV sedation was administered by anesthesia under continuous monitoring. Initially upper endoscopy was done. The Olympus GF 160 video endoscope was inserted inserted into the mouth and esophagus intubated without any difficulty and was gradually advanced into the stomach and duodenum and carefully examined. The bulb and second part of the duodenum appeared normal. Abscesses were done from the duodenum to rule out celiac disease. The scope was then withdrawn into the stomach adequately insufflated with air and upon careful examination the antrum and body, appeared normal. In retroflexion there was a moderate to large sized hiatal hernia noted. The cardia and fundus appeared normal. The scope was then withdrawn into the esophagus. The GE junction was located at 38 cm to the incisors. It was a long segment of Harris's esophagus extending from 33-38 cm from the incisors and multiple biopsies were done from this area. There were no ulcerations identified.. Rest of the esophagus appeared normal. Patient tolerated the procedure well. At this time the patient continued to remain sedation. Initial digital rectal examination was normal. Olympus CF 160 video colonoscope was then inserted into the rectum and gradually advanced to the cecum without any difficulty. Careful examination was performed as the scope was gradually being withdrawn. The prep was excellent. The cecum, ascending colon, transverse colon, appeared normal. There was no evidence of residual polyp noted from the prior polypectomies. The descending colon, also appeared normal. The sigmoid colon there was a 5 mm polyp that was removed by cold biopsy. Scattered left-sided diverticulosis seen. Rest of the sigmoid colon and rectum appeared normal. Retroflexion was performed in the rectum and no lesions were noted. Patient tolerated the procedure well. Impression: 1. Upper endoscopy revealed moderate to large hiatal hernia and long segment Harris's esophagus status post biopsy 2. Colonoscopy revealed a 5 mm; polyp status post cold biopsy and scattered sigmoid diverticulosis. Recommendations: Findings of this examination were discussed with the patient as well as a family. She was advised to follow with the biopsy results. Her diet will be advanced as tolerated and patient can be discharged home today with outpatient follow-up in 2 weeks
[2018-11-06 11:22] LABS: Glucose,Whole Blood 80 mg/dL (75-99)
[2018-11-06 12:06] VITALS: PULSE 98; RESP 16; TEMP 98.6
[2018-11-06 12:07] VITALS: BP 166/88
--- NOTE | 2018-11-07 22:46 | P.DS ---
Providers Date of admission: 11/06/18 08:37 Expected date of discharge: 11/06/18 Attending physician: He Jimenez Consults: 11/03/18 17:20 Consult Physician Routine Consulting Provider: Pastora Archibald Consult Reason/Comments: melena, GI bleed Do you want consulting provider notified?: Yes Primary care physician: Sharan Nick [facility] Course: Chief Complaint: Black stools Hospital course: This is a very pleasant 78-year-old patient of Dr. Nick from visiting physician. Chronic stable medical conditions include diabetes, GERD, Harris's esophagus, primary osteoarthritis, hypothyroid. Patient also had thyroid cancer in the past. EGD and colonoscopy in June of this year by Dr. Ritesh Archibald revealed moderate to large hiatal hernia and a long segment of Harris's esophagus, colon polyps, and moderate sigmoid diverticulosis. Patient about 2 weeks ago was at another hospital feeling weak and tired. Hemoglobin was found to be around 6. Given a unit of blood. Patient has been feeling weak tired rundown. Visiting nurse came out to her found her to have a low blood pressure. Patient also notices for last 2 or 3 weeks have been having dark stools. Has decided to come in. No chest pain no palpitation. EGD showed-moderate to large hiatal hernia and a long segment of Harris's esophagus. Colonoscopy showed-polyps and scattered sigmoid diverticulosis. Patient is stable. Okayed BY GI to be discharged. Consultation: Dr. Ritesh Archibald from GI Physical examination: VITAL SIGNS: 98.6, 98, 16, 1 69 x 92, 99% room air GENERAL: Laying in bed, comfortable EYES: Pupils equal. Conjunctiva pale. HEENT: External appearance of nose and ears normal, oral cavity grossly normal. NECK: JVD not raised; masses not palpable. HEART: First and second heart sounds are normal; no edema. LUNGS: Respiratory rate normal; clear to auscultation. ABDOMEN: Soft, nontender, liver spleen not palpable, no masses palpable. PSYCH: Alert and oriented x3; mood and affect normal. MUSCULAR skeletal: Evidence of OA especially in the hands INVESTIGATIONS, reviewed in the clinical context: Hemoglobin 10.1 Admission labs White count 9.4 hemoglobin 10.8 repeat 8.7 potassium 5.3 bun 18 creatinine 1.07 Discharge diagnosis: -Hypotension from blood loss causing weakness and tiredness -Acute microcytic anemia from GI bleed -Acute GI bleed with patient having black stools. -Chronic Harris's esophagus -Moderate to large hiatal hernia -Sigmoid diverticulosis -Diabetes mellitus type 2 -GERD -Primary osteoarthritis -Hypothyroid -Anxiety depression otherwise specified -Obesity BMI 33.5 Disposition: Home Patient Condition at Discharge: Stable Plan - Discharge Summary Discharge Rx Participant: No New Discharge Prescriptions: Continue metFORMIN HCL [Metformin HCl ER] 500 mg PO BID Furosemide 40 mg PO DAILY PRN PRN Reason: Edema Escitalopram [Lexapro] 20 mg PO DAILY OLANZapine [ZyPREXA] 10 mg PO HS Glucosamine/Chondr [place] A Sod [Osteo Bi-Flex Caplet] 1 tab PO DAILY Acetaminophen Tab [Tylenol] 650 mg PO BID ALPRAZolam [Xanax] 0.25 mg PO BID Ipratropium [place] 0.06%Nasal [Atrovent Nasal 0.06%] 2 spray EA NOSTRIL BID Cyanocobalamin (Vitamin B-12) [Vitamin B-12] 1,000 mcg PO DAILY Acetaminophen Tab [Tylenol] 325 mg PO DAILY@1200 Omeprazole 20 mg PO BID Levothyroxine Sodium [Synthroid] 50 mcg PO DAILY Discontinued Alendronate Sodium 70 mg PO [place] Docusate [Colace] 100 mg PO DAILY Discharge Medication List Escitalopram [Lexapro] 20 mg PO DAILY 03/14/15 [History] Furosemide 40 mg PO DAILY PRN 03/14/15 [History] OLANZapine [ZyPREXA] 10 mg PO HS 03/14/15 [History] metFORMIN HCL [Metformin HCl ER] 500 mg PO BID 03/14/15 [History] Glucosamine/Chondr [place] A Sod [Osteo Bi-Flex Caplet] 1 tab PO DAILY 09/19/15 [History] ALPRAZolam [Xanax] 0.25 mg PO BID 06/09/18 [History] Acetaminophen Tab [Tylenol] 650 mg PO BID 06/09/18 [History] Acetaminophen Tab [Tylenol] 325 mg PO DAILY@1200 11/03/18 [History] Cyanocobalamin (Vitamin B-12) [Vitamin B-12] 1,000 mcg PO DAILY 11/03/18 [History] Ipratropium [place] 0.06%Nasal [Atrovent Nasal 0.06%] 2 spray EA NOSTRIL BID 11/03/18 [History] Levothyroxine Sodium [Synthroid] 50 mcg PO DAILY 11/03/18 [History] Omeprazole 20 mg PO BID 11/03/18 [History] Follow up Appointment(s)/Referral(s): Pastora Archibald MD [Family Provider] - 11/30/18 1:15 pm [facility]STAFF] - 1 Week Sharan Nick MD [Primary Care Provider] - 1-2 days (Dr. Nick's office will call patient with an appointment date and time. ) Patient Instructions/Handouts: Anemia (DC), Melena (GEN) Activity/Diet/Wound Care/Special Instructions: cbc - 1 week Discharge Disposition: HOME WITH HOME HEALTH SERVICES
== END 2018-11-06 15:31 | disposition home health service (06) | DRG 378 ==
LOC: EC 14:16 → 3NMEDONC 17:14 → OBSVTOIN 11-06 08:37
PROVIDERS: ADMIT Hospitalist; ATTEND Hospitalist
PROC: 0DBN8ZX Excision of Sigmoid Colon, Via Natural or Artificial Opening Endoscopic, Diagnostic (ICD-10-PCS; 2018-11-06)
PROC: 0DB98ZX Excision of Duodenum, Via Natural or Artificial Opening Endoscopic, Diagnostic (ICD-10-PCS; principal; 2018-11-06 08:20)
PROC: 0DB58ZX Excision of Esophagus, Via Natural or Artificial Opening Endoscopic, Diagnostic (ICD-10-PCS; 2018-11-06 08:20)
DX: K57.31 Diverticulosis of large intestine without perforation or abscess with bleeding (principal); D62 Acute posthemorrhagic anemia; I95.9 Hypotension, unspecified; F20.9 Schizophrenia, unspecified; E11.9 Type 2 diabetes mellitus without complications; K22.70 Barrett's esophagus without dysplasia; K44.9 Diaphragmatic hernia without obstruction or gangrene; K21.0 Gastro-esophageal reflux disease with esophagitis; K63.5 Polyp of colon; E66.9 Obesity, unspecified; E89.0 Postprocedural hypothyroidism; M19.91 Primary osteoarthritis, unspecified site; R32 Unspecified urinary incontinence; F41.8 Other specified anxiety disorders; F31.9 Bipolar disorder, unspecified; Z68.33 Body mass index [BMI] 33.0-33.9, adult; Z79.84 Long term (current) use of oral hypoglycemic drugs; Z79.83 Long term (current) use of bisphosphonates; Z79.890 Hormone replacement therapy; Z79.899 Other long term (current) drug therapy; Z86.69 Personal history of other diseases of the nervous system and sense organs; Z96.642 Presence of left artificial hip joint; Z90.49 Acquired absence of other specified parts of digestive tract; Z85.850 Personal history of malignant neoplasm of thyroid; Z86.010 Personal history of colon polyps
CPT/HCPCS: 36415; 43239; 45380; 80053; 84484; 85025; 85610; 85730; 86850; 86900; 86901; 88305; 96361; 96374; 99285

== ENCOUNTER → 2020-04-19 | Outpatient (CLI) | payer MEDICARE, OTHER ==
--- NOTE | 2020-04-19 16:23 | CONS ---
CONSULTATION DATE OF SERVICE: 04/19/2020 This 79-year-old lady has [facility] obstructive sleep apnea- hypopnea syndrome. HISTORY OF PRESENT ILLNESS/SLEEP-WAKE EVALUATION: Patient usual sleep schedule from 8 p.m. to 7 a.m. Usually she does not have any problems with falling asleep, although she read, puzzles book in her bedroom. She preferred to sleep on the side position. The patient has history of obstructive sleep apnea diagnosed about 10 years ago by home sleep apnea test. After that she was started on treatment with CPAP and use it for many years. While using her CPAP, she continued to snore while on the CPAP unit. About several weeks ago, she was seen by respiratory therapist and recommended to change her CPAP unit to ventilator which she is using at the present time. On ventilator, she still has episodes of snoring according to her daughter. She wakes up from sleep up to 7 times with nocturia. She has episodes of awakenings with dry mouth and gasping for air. In the morning, patient wakes up tired, has difficulties to pay attention, falling asleep during the day, has problems with memory, concentration, anxiety. Finley Sleepiness Scale is 5. No history of hypnagogic hallucinations, sleep paralysis or cataplexy. Presently, we do not have information about her previous sleep study. PAST MEDICAL HISTORY: Asthma, anxiety, acid reflux, depression, diabetes, osteoporosis, hypothyroidism. PAST SURGICAL HISTORY: Left hip replacement, cholecystectomy, surgery for nasal septum deviation, thyroid resection for thyroid CA. MEDICATIONS: Levothyroxine 50 mcg once a day, alprazolam 0.25 mg once a day, omeprazole 20 mg twice a day, escitalopram 20 mg once a day, olanzapine 10 mg once a day at bedtime, metformin 500 mg twice a day, alendronate 70 mg once a week, ferrous sulfate 325 mg twice a day, albuterol inhaler. SOCIAL HISTORY: Negative for smoking or using alcohol. FAMILY HISTORY: Positive for hypertension, stroke, and mental illness. REVIEW OF SYSTEMS: Multiple awakenings from sleep with nocturia, shortness of breath. PHYSICAL EXAMINATION: GENERAL: A pleasant lady without distress. VITAL SIGNS: BP 184/82, HR 92, RR 18, height 5 feet 7 inches, weight 228.2, temperature 98.4 oxygen saturation on room air 96%, body mass index 35.7. HEENT: PERRLA, EOMI. Oropharynx extremely low position of soft palate. Mallampati 4. Wide neck 17-1/2 inches in circumference. NECK: Supple, no JVD. Thyroid is not palpable. LUNGS: Clear to percussion and to auscultation. Good air exchange. No wheezing or rhonchi. HEART: S1, S2 regular. No murmurs, gallops, or rubs. ABDOMEN: Obese. EXTREMITIES: No clubbing or cyanosis. BOILER TESTING TECHNICIAN: Awake, alert, and oriented X3. Cranial nerves 2 to 7 intact. There is no fasciculation or atrophy. noted. No focal deficits observed. IMPRESSION: 1. History of obstructive sleep apnea diagnosed about 10 years ago by home sleep apnea test in another institution. Snoring, multiple awakenings from sleep with nocturia, extremely low position of soft palate, wide neck. Obstructive sleep apnea-hypopnea syndrome. 2. Obesity, body mass index 35.7. 3. Hypertension in the office. 4. Asthma. 5. History of depression. 6. History of diabetes mellitus. 7. History of osteoporosis. 8. Status post nasal surgery for nasal septum deviation. 9. History of thyroid carcinoma, status post thyroid resection. 10.Hypothyroidism on thyroid supplement. PLAN: 1. Polysomnography for evaluation of patient's breathing during sleep. 2. CPAP, if necessary BiPAP, if necessary auto servo ventilator or BiPAP ST mode for correction of patient's respiratory abnormalities. 3. Losing weight. 4. Sleep hygiene with regular time in bed for 7-1/2 to 8 hours. 5. No driving if feeling sleepiness. Thank you very much for referring this patient for consultation. Sincerely, Josef Walker MD, PhD, FAASM Diplomat of [employer] [facility] [place] MMODL / IJN: [id number] /
== END ==
LOC: SLEEP 13:49
PROVIDERS: ATTEND Internal Medicine
DX: G47.33 Obstructive sleep apnea (adult) (pediatric) (principal); J45.909 Unspecified asthma, uncomplicated; F41.9 Anxiety disorder, unspecified; K21.9 Gastro-esophageal reflux disease without esophagitis; F32.9 Major depressive disorder, single episode, unspecified; E11.9 Type 2 diabetes mellitus without complications; E03.9 Hypothyroidism, unspecified; M81.0 Age-related osteoporosis without current pathological fracture; I10 Essential (primary) hypertension; E66.9 Obesity, unspecified; Z68.35 Body mass index [BMI] 35.0-35.9, adult; Z85.850 Personal history of malignant neoplasm of thyroid; Z79.84 Long term (current) use of oral hypoglycemic drugs; Z79.890 Hormone replacement therapy; Z79.899 Other long term (current) drug therapy; Z98.890 Other specified postprocedural states
CPT/HCPCS: 99211

== ENCOUNTER 2020-09-26 20:39 | Emergency (ER) | payer MEDICARE, OTHER ==
[2020-09-26 21:37] LABS: Appearance,Urine Clear (Clear); Bacteria,Urine Many /hpf; Bilirubin,Urine Negative (Negative); Blood,Urine Negative (Negative); Color,Urine Colorless; Glucose,Urine (UA) Negative (Negative); Hyaline Casts,Urine 1 /lpf (0-2); Ketones,Urine Negative (Negative); Leukocyte Esterase,Urine Small (Negative); Mucus,Urine Rare /hpf; Nitrite,Urine Negative (Negative); Protein,Urine Negative (Negative); Specific Gravity,Urine 1.007 (1.001-1.035); Squamous Epithelial Cell,Urine <1 /hpf (0-4); Urobilinogen,Urine <2.0 mg/dL (<2.0); WBC,Urine 6 /hpf (0-5)
--- NOTE | 2020-09-26 21:42 | XR ---
EXAMINATION TYPE: XR chest 2V DATE OF EXAM: 09/26/2020 COMPARISON: 05/23/2013 HISTORY: Short of breath TECHNIQUE: 2 views FINDINGS: Heart is top normal in size. There is large hiatal hernia. There is no heart failure. Lungs are clear of infiltrate. Exam limited by patient's size. I see no evidence of pleural effusion. Bony thorax is intact. IMPRESSION: Large hiatal hernia. No acute lung disease. No change compared to old exam. Cardiomegaly.
[2020-09-26 21:44] LABS: Amphetamine Screen,Urine Not Detected (NotDetected); Barbiturate Screen,Urine Not Detected (NotDetected); Benzodiazepines Screen,Urine Not Detected (NotDetected); Cocaine Screen,Urine Not Detected (NotDetected); Methadone Screen, Urine Not Detected (NotDetected); Opiate Screen,Urine Not Detected (NotDetected); Oxycodone Screen, Urine Not Detected (NotDetected); Phencyclidine Screen,Urine Not Detected (NotDetected); Tricyclic Antidepressant,Urine Not Detected (NotDetected); Urn Cannabinoid Scrn Not Detected (NotDetected)
--- NOTE | 2020-09-26 22:39 | ED ---
Psych HPI - General Chief Complaint: Psychiatric Symptoms Stated Complaint: Mental Health Time Seen by Provider: 09/26/20 21:07 Source: patient, EMS Mode of arrival: EMS - History of Present Illness Initial Comments: This patient is an 80-year-old woman who was sent in by her daughter to have psychiatric evaluation. The patient per the report was not taking medications and not caring for herself. The patient when I interview her does not have any complaints. She states she is deftly not feeling suicidal. She states that there are times she does not feel like taking the medications because they SEEM to be doing anything for her. She states that she feels pretty well other than being slightly short of breath when she walks. She does not feel like she is endangering herself. She states she just wants to be at home, does not want to be here.. Complaint: other -: days(s) Associated Psychiatric Symptoms: none History of same: Yes Quality: intermittent Improves With: none Worsens With: none Associated Symptoms: denies other symptoms - Related Data Home Medications Medication Instructions Recorded Confirmed Escitalopram [Lexapro] 20 mg PO DAILY 03/14/15 11/03/18 Furosemide 40 mg PO DAILY PRN 03/14/15 11/03/18 OLANZapine [ZyPREXA] 10 mg PO HS 03/14/15 11/03/18 metFORMIN HCL [Metformin HCl ER] 500 mg PO BID 03/14/15 11/03/18 Glucosamine/Chondr Christensen A Sod [Osteo 1 tab PO DAILY 09/19/15 11/03/18 Bi-Flex Caplet] ALPRAZolam [Xanax] 0.25 mg PO BID 06/09/18 11/03/18 Acetaminophen Tab [Tylenol] 650 mg PO BID 06/09/18 11/03/18 Acetaminophen Tab [Tylenol] 325 mg PO DAILY@1200 11/03/18 11/03/18 Cyanocobalamin (Vitamin B-12) 1,000 mcg PO DAILY 11/03/18 11/03/18 [Vitamin B-12] Ipratropium [place] 0.06%Nasal 2 spray EA NOSTRIL BID 11/03/18 11/03/18 [Atrovent Nasal 0.06%] Levothyroxine Sodium [Synthroid] 50 mcg PO DAILY 11/03/18 11/03/18 Omeprazole 20 mg PO BID 11/03/18 11/03/18 Allergies Allergy/AdvReac Type Severity Reaction Status Date / Time No Known Allergies Allergy Verified 09/26/20 22:29 Review of Systems ROS Statement: Those systems with pertinent positive or pertinent negative responses have been documented in the HPI. ROS Other: All systems not noted in ROS Statement are negative. Constitutional: Denies: fever, chills Respiratory: Denies: cough, dyspnea, wheezes Cardiovascular: Reports: as per HPI, dyspnea on exertion. Denies: chest pain, palpitations, orthopnea, edema, syncope Gastrointestinal: Denies: abdominal pain, vomiting, diarrhea Genitourinary: Denies: dysuria, frequency, hematuria Musculoskeletal: Denies: back pain Skin: Denies: rash Neurological: Denies: headache, weakness, numbness Psychiatric: Denies: depression, auditory hallucinations, visual hallucinations, homicidal thoughts, suicidal thoughts Past Medical History Past Medical History: Cancer, Diabetes Mellitus, GERD/Reflux, Osteoarthritis (OA), Thyroid Disorder Additional Past Medical History / Comment(s): HX OF BARRETTS ESOPHAGUS, hx migraines, glucose intolerance, thyroid cancer, History of Any Multi-Drug Resistant Organisms: None Reported Past Surgical History: Joint Replacement Additional Past Surgical History / Comment(s): partial thyroidectomy, gallbladder stones removed, deviated septum, left hip replacement, COLONOSCOPY, EGD Past Anesthesia/Blood Transfusion Reactions: Previous Problems w/ Anesthesia Additional Past Anesthesia/Blood Transfusion Reaction / Comment(s): HAS HAD INCIDENTS OF INCONTINENCE and diff coming out of anesthesia Past Psychological History: Anxiety, Bipolar, Schizophrenia Smoking Status: Never smoker Past Alcohol Use History: None Reported Past Drug Use History: None Reported - Past Family History Father Family Medical History: Cancer Mother Family Medical History: Cancer General Exam Limitations: no limitations General appearance: alert, in no apparent distress Head exam: Present: atraumatic, normocephalic Eye exam: Present: normal appearance. Absent: scleral icterus, conjunctival injection ENT exam: Present: normal oropharynx Neck exam: Present: normal inspection Respiratory exam: Present: normal lung sounds bilaterally. Absent: respiratory distress, wheezes, rales, rhonchi, stridor, accessory muscle use, decreased breath sounds Cardiovascular Exam: Present: regular rate, normal rhythm, normal heart sounds. Absent: systolic murmur, diastolic murmur, rubs, gallop GI/Abdominal exam: Present: soft. Absent: distended, tenderness, guarding, rebound, rigid, mass Extremities exam: Present: normal inspection, normal capillary refill. Absent: pedal edema, calf tenderness Back exam: Present: normal inspection. Absent: CVA tenderness (R), CVA tenderness (L) Neurological exam: Present: alert, oriented X3, CN II-XII intact. Absent: motor sensory deficit Psychiatric exam: Present: normal affect, normal mood. Absent: depressed, agitated, anxious, flat affect, manic, homicidal ideation, suicidal ideation Skin exam: Present: warm, dry, intact, normal color. Absent: rash Course Vital Signs 09/26/20 20:44 Temperature 97.8 F Pulse Rate 100 Respiratory 18 Rate Blood Pressure 142/74 O2 Sat by Pulse 97 Oximetry Medical Decision Making - Lab Data Lab Results 09/26/20 Range/Units 20:55 Urine Color Colorless Urine Appearance Clear (Clear) Urine pH 5.0 (5.0-8.0) Ur Specific [place] 1.007 (1.001-1.035) Urine Protein Negative (Negative) Urine Glucose (UA) Negative (Negative) Urine Ketones Negative (Negative) Urine Blood Negative (Negative) Urine Nitrite Negative (Negative) Urine Bilirubin Negative (Negative) Urine Urobilinogen <2.0 (<2.0) mg/dL Ur Leukocyte Esterase Small H (Negative) Urine WBC 6 H (0-5) /hpf Ur Squamous Epith Cells <1 (0-4) /hpf Urine Bacteria Many H (None) /hpf Hyaline Casts 1 (0-2) /lpf Urine Mucus Rare H (None) /hpf Urine Opiates Screen Not Detected (NotDetected) Ur Oxycodone Screen Not Detected (NotDetected) Urine Methadone Screen Not Detected (NotDetected) Ur Propoxyphene Screen Not Detected (NotDetected) Ur Barbiturates Screen Not Detected (NotDetected) U Tricyclic Antidepress Not Detected (NotDetected) Ur Phencyclidine Scrn Not Detected (NotDetected) Ur Amphetamines Screen Not Detected (NotDetected) U Methamphetamines Scrn Not Detected (NotDetected) U Benzodiazepines Scrn Not Detected (NotDetected) Urine Cocaine Screen Not Detected (NotDetected) U Marijuana (THC) Screen Not Detected (NotDetected) Disposition Clinical Impression: Adjustment reaction of adult life Disposition: HOME SELF-CARE Condition: Good Instructions (If sedation given, give patient instructions): Mood Disorders (ED) Is patient prescribed a controlled substance at d/c from ED?: No Referrals: Sharan Nick MD [Primary Care Provider] - 1-2 days
[2020-09-27 10:08] VITALS: BP 168/80; PULSE 82; RESP 16; TEMP 97.6
== END 2020-09-27 10:43 | disposition home or self-care (01) ==
LOC: EC 20:39
DX: F43.20 Adjustment disorder, unspecified (principal); R06.09 Other forms of dyspnea; E11.9 Type 2 diabetes mellitus without complications; K21.9 Gastro-esophageal reflux disease without esophagitis; E07.9 Disorder of thyroid, unspecified; Z79.84 Long term (current) use of oral hypoglycemic drugs; Z79.890 Hormone replacement therapy; Z79.899 Other long term (current) drug therapy
CPT/HCPCS: 71046; 80306; 81001; 82075; 99285